=== PATIENT | female | born 1940 | race Caucasian/White ===

== ENCOUNTER 2019-03-21 04:36 | Inpatient (IN) ==
--- NOTE | 2019-03-09 08:30 | EKG Report ---
Test Performed on : 03/09/2019 08:19:00 AM Test Reason : PAT Blood Pressure : / mmHG Vent. Rate : 074 BPM Atrial Rate : 074 BPM P-R Int : 172 ms QRS Dur : 078 ms QT Int : 386 ms P-R-T Axes : 047 -16 063 degrees QTc Int : 428 ms Normal sinus rhythm. Normal ECG No previous ECGs available Confirmed by Steve Zavaleta MD ([id number]) on 03/10/2019 7:34:22 AM
[2019-03-09 08:40] LABS: URINE SOURCE CLEAN CATCH
[2019-03-09 08:50] LABS: BASO# 0.02 X1000 (0.0-0.2); BASO% 0.2 % (0.0-0.8); EOS# 0.17 X1000 (0.0-0.7); EOS% 1.9 % (0.0-10.0); HEMATOCRIT 43.1 % (37.0-47.0); HEMOGLOBIN 13.5 g/dL (12.0-16.0); IMM GRAN# 0.04 X1000 (0.0-0.04); IMM GRAN% 0.4 % (0.0-0.5); LYMPH# 2.82 X1000 (1.2-3.4); LYMPH% 31.3 % (20.5-51.1); MCH 28.5 PG (27-31); MCHC 31.3 g/dL (33-37); MCV 90.9 FL (81-99); MONO# 0.83 X1000 (0.11-0.59); MONO% 9.2 % (1.7-9.3); MPV 9.9 FL (7.4-10.4); NEUT# 5.14 X1000 (1.4-6.5); PLT 205 X1000 (130-400); RBC 4.74 XMIL (4.2-5.4); WBC 9.02 X1000 (4.8-10.8)
[2019-03-09 08:58] LABS: BILIRUBIN URINE NEGATIVE (NEGATIVE); BLOOD URINE NEGATIVE (NEGATIVE); COLOR YELLOW; GLUCOSE URINE NEGATIVE (NEGATIVE); KETONE URINE NEGATIVE (NEGATIVE); LEUKOCYTES URINE LARGE (NEGATIVE); NITRITE URINE NEGATIVE (NEGATIVE); PH URINE 6.5; PROTEIN URINE NEGATIVE (NEGATIVE); SP GRAVITY URINE 1.015; TURBIDITY URINE CLEAR (CLEAR); UROBILINOGEN URINE NORMAL (NORMAL)
[2019-03-09 09:00] LABS: UR EPITHELIAL CELLS <10 /HPF (<10); URINE BACTERIA 1+ /HPF; URINE RBC <10 /HPF (<10); URINE WBC 20-40 /HPF (<10)
[2019-03-09 09:44] LABS: ALBUMIN 4.6 g/dL (3.5-5.0); CALCIUM 10.6 mg/dL (8.8-10.2); POTASSIUM 3.9 mmol/L (3.5-5.1)
[2019-03-09 10:10] LABS: INR 1.02; PROTIME 13.5 Seconds (11.0-16.0)
[2019-03-09 11:28] LABS: HEMOGLOBIN A1C 6.4 % (4.8-6.0)
[2019-03-21] MEDS ORDERED: REGLAN ONE (06:57)
[2019-03-21] MEDS ORDERED: COLACE ONE (06:57)
[2019-03-21] MEDS ORDERED: PEPCID ONE (06:57)
[2019-03-21] MEDS ORDERED: KEFZOL 1 GM/D5W 1 GM/50 ML IVPB ONE (06:58)
[2019-03-21] MEDS ORDERED: LYRICA ONE (06:58)
[2019-03-21] MEDS ORDERED: LR 1,000 ML ONE (06:58)
[2019-03-21] MEDS ORDERED: CELEBREX ONE (06:58)
[2019-03-21] MEDS ORDERED: DIPRIVAN 1% ONE (07:27)
[2019-03-21] MEDS ORDERED: DURAMORPH ONE (08:16)
[2019-03-21] MEDS ORDERED: SODIUM CHLORIDE 0.9% ONE (08:16)
[2019-03-21] MEDS ORDERED: CYKLOKAPRON 1,000 MG/NS 1,000 MG/100 ML IVPB ONE (08:16)
[2019-03-21] MEDS ORDERED: MARCAINE 0.25% PF ONE (08:16)
[2019-03-21] MEDS ORDERED: TORADOL ONE (08:16)
[2019-03-21] MEDS ORDERED: EXPAREL 1.3% ONE (08:17)
[2019-03-21] MEDS ORDERED: NEOSPORIN G.U. IRRIGANT ONE (08:17)
[2019-03-21] MEDS ORDERED: DECADRON ONE (09:43)
[2019-03-21] MEDS ORDERED: XYLOCAINE-MPF 2% ONE (09:43)
[2019-03-21] MEDS ORDERED: OFIRMEV 1000 MG/ISOTONIC SOLN 1,000 MG/100 ML BOTTLE ONE (09:43)
[2019-03-21] MEDS ORDERED: ZOFRAN ONE (09:43)
[2019-03-21] MEDS ORDERED: DILAUDID ONE (10:13)
[2019-03-21] MEDS ORDERED: BREVIBLOC ONE (10:14)
[2019-03-21 10:15] LABS: URINE SOURCE CATH
[2019-03-21 10:19] LABS: BILIRUBIN URINE NEGATIVE (NEGATIVE); BLOOD URINE NEGATIVE (NEGATIVE); COLOR YELLOW; GLUCOSE URINE NEGATIVE (NEGATIVE); KETONE URINE NEGATIVE (NEGATIVE); LEUKOCYTES URINE NEGATIVE (NEGATIVE); NITRITE URINE NEGATIVE (NEGATIVE); PROTEIN URINE NEGATIVE (NEGATIVE); SP GRAVITY URINE 1.012; TURBIDITY URINE CLEAR (CLEAR); UROBILINOGEN URINE NORMAL (NORMAL)
[2019-03-21 10:20] LABS: UR EPITHELIAL CELLS <10 /HPF (<10); URINE BACTERIA NEGATIVE /HPF; URINE RBC <10 /HPF (<10); URINE WBC <10 /HPF (<10)
[2019-03-21] MEDS ORDERED: EPHEDRINE ONE (10:20)
[2019-03-21] MEDS ORDERED: NS 1,000 ML ONE (11:13)
--- NOTE | 2019-03-21 12:29 | OPERATIVE NOTE ---
PROCEDURE DATE: 03/21/2019 PREOPERATIVE DIAGNOSIS: Right hip degenerative joint disease. POSTOPERATIVE DIAGNOSIS: Right hip degenerative joint disease. PROCEDURE: Right anterior total hip arthroplasty using a [facility] size 5 standard offset stem with a neutral neck length, 36 mm head, a 52 mm hemispherical shell with two 6.5 cancellous screws of 35 and 25 mm, and a 36 mm inside diameter liner. ANESTHESIA: Spinal. SURGEON: Jacob Grider MD [employer] RECEIVER TANK TRUCK: Dat, who was present throughout the case. His assistance was critical for successful completion of the case. BLOOD LOSS: Minimal. DRAIN: Hemovac x1. DESCRIPTION OF PROCEDURE: The patient was brought to the operative suite and placed in supine position. After successful administration of general anesthesia, the patient placed on the OSI table. The right lower extremity was prepped and draped in the usual sterile fashion. A longitudinal incision was made beginning 3 cm distal and 3 cm lateral to the anterior superior iliac spines and extending distally and slightly laterally 8 cm, dissected sharply through skin and subcutaneous tissue, down tensor fascia. Tensor fascia was incised, dissected bluntly down deep tensor fascia. The deep tensor fascia was incised and circumflex vessels electrocauterized exposing the anterior capsule. A T capsulotomy was performed exposing the femoral neck. Femoral neck cut was made with oscillating saw. Femoral head was removed with a power corkscrew. The labrum was resected. The acetabulum was serially reamed to accept a 52 cup. The 52 cup was driven into place in the proper amount inclination and anteversion. Two 6.5 cancellous screws were placed 35 mm superiorly and 25 mm posterior superiorly and then a 36 mm inside diameter liner was locked onto the shell. Attention was then directed to the femur. The femur was externally rotated, extended, adducted, and elevated out of the wound with the hook on the OSI bed. The lateral neck was rongeured. The canal was serially broached to a size 5. A size 5 standard offset neutral neck length was trialed and found be excellent, leg length, offset, fit and fill of the stem and stability of the hip. The trial was then removed. Definitive stem was seated onto the femur and the ceramic neutral neck length 36 mm head was locked onto the Tran taper. The hip was again reduced. It was again found to be in excellent position. The hip was copiously irrigated with normal saline containing irrigant and Vashe irrigation. The hip was copiously infiltrated with Exparel, including posterior capsule, anterior capsule, intramuscular and subcutaneous tissue. The anterior capsule was repaired with 0 V-Loc. A drain was placed deep to the tensor fascia and buried around the stem neck. The tensor fascia was closed with 0 V-Loc. The skin edge was approximated with 2-0 Vicryl, 4-0 Monocryl and Prineo, and a sterile dressing was applied. The patient tolerated the procedure without complication. At the end of the procedure, all counts were correct. The patient was transferred to the recovery room in stable condition. cc: Jacob Grider MD
[2019-03-21] MEDS ORDERED: MORPHINE IV PRN ×3 (12:30)
[2019-03-21] MEDS ORDERED: MILK OF MAGNESIA PO PRN (12:30)
[2019-03-21] MEDS ORDERED: ZOFRAN IV PRN (12:30)
[2019-03-21] MEDS ORDERED: D50W SYRINGE IV PRN (12:30)
[2019-03-21] MEDS ORDERED: OXY IR PO PRN ×2 (12:30)
[2019-03-21] MEDS ORDERED: ZOFRAN ODT PO PRN (12:30)
[2019-03-21] MEDS ORDERED: HYDROCHLOROTHIAZIDE PO PRN (15:02)
[2019-03-21] MEDS ORDERED: CYKLOKAPRON 1,000 MG/NS 1,000 MG/100 ML IVPB IV ONE (15:45)
[2019-03-21] MEDS: NS 1,000 ML IV SCH (16:03)
[2019-03-21] MEDS: TYLENOL PO SCH ×2 (16:07→21:25)
[2019-03-21] MEDS: ULTRAM PO SCH ×2 (16:07→21:24)
[2019-03-21] MEDS: KEFZOL 1 GM/D5W 1 GM/50 ML IVPB IV SCH (16:52)
[2019-03-21] MEDS: HUMALOG SUBQ SCH ×2 (16:56→21:26)
[2019-03-21] MEDS ORDERED: LANTUS INSULIN SUBQ SCH (21:00)
[2019-03-21] MEDS: PERIDEX MT SCH (21:23)
[2019-03-21] MEDS: CELEBREX PO SCH (21:24)
[2019-03-21] MEDS: COLACE PO SCH (21:24)
[2019-03-21] MEDS: LYRICA PO SCH (21:26)
[2019-03-22] MEDS: KEFZOL 1 GM/D5W 1 GM/50 ML IVPB IV SCH (01:38)
[2019-03-22] MEDS: NS 1,000 ML IV SCH (01:39)
[2019-03-22] MEDS: TYLENOL PO SCH ×2 (04:00→10:14)
[2019-03-22] MEDS: ULTRAM PO SCH ×2 (04:00→10:14)
[2019-03-22 05:59] LABS: CALCIUM 9.1 mg/dL (8.8-10.2); CREATININE 1.1 mg/dL (0.5-0.9); POTASSIUM 5.5 mmol/L (3.5-5.1)
[2019-03-22] MEDS ORDERED: XARELTO PO SCH (06:00)
[2019-03-22] MEDS: HUMALOG SUBQ SCH (06:36)
[2019-03-22] MEDS ORDERED: TRICOR PO SCH (09:00)
[2019-03-22] MEDS ORDERED: NORVASC PO SCH (09:00)
[2019-03-22] MEDS ORDERED: TOPROL XL PO SCH (09:00)
[2019-03-22] MEDS ORDERED: PEPCID PO SCH (09:00)
[2019-03-22] MEDS: COLACE PO SCH ×2 (10:13→10:18)
[2019-03-22] MEDS: LYRICA PO SCH (10:14)
[2019-03-22] MEDS: CELEBREX PO SCH (10:14)
[2019-03-22] MEDS: PERIDEX MT SCH (10:14)
[2019-03-22] MEDS ORDERED: HUMULIN R SUBQ SCH (11:00)
[2019-03-22 11:22] VITALS: BP 159/65
--- NOTE | 2019-03-22 14:44 | DISCHARGE SUMMARY ---
ADMISSION DATE: 03/21/2019 DISCHARGE DATE: 03/22/2019 DISCHARGE DIAGNOSIS: Right hip degenerative joint disease status post right anterior total hip arthroplasty. DISCHARGE MEDICATIONS: See discharge medication list. DISPOSITION: Patient discharged home with physical therapy. Instructed return for any signs of infection, deep venous thrombosis. Instructed to return to see Dr. Grider next . HOSPITAL COURSE: On day of admission patient underwent a right anterior total hip arthroplasty. Her postoperative course was unremarkable. At discharge she is afebrile, tolerating a regular diet, ambulating well with physical therapy. Her wound is clean, dry, intact without sign of infection. She is discharged home in stable condition with instruction to follow up as described above. cc: Jacob Grider MD
== END 2019-03-22 14:40 | disposition home health service (06) | DRG 470 ==
LOC: SURHOLD 04:36 → 4N 09:21
PROVIDERS: ADMIT Orthopaedic Surgery; ATTEND Orthopaedic Surgery